=== PATIENT | female | born 1975 | race Two or more races ===

== ENCOUNTER 2024-05-24 19:24 | Emergency (ER) | payer MEDICAID, SELFPAY ==
[2024-05-24 19:25] VITALS: BMI 38.9
--- NOTE | 2024-05-24 19:44 | EKG_ITS ---
[facility] (Formerly [facility]) Test Date: 2024-05-24 Pat Name: CESAR LEON Department: Room: - Gender: Female [employer] Supervisor: : 1975 Requested By: Angelina Jones Order Number: [id number] Reading MD: Angelina Jones Measurements Intervals [place] Rate: 81 P: -2 OR: 122 QRS: -21 QRSD: 90 T: 5 QT: 357 QTc: 415 Interpretive Statements SINUS RHYTHM INDETERMINATE AXIS LOW QRS VOLTAGE IN PRECORDIAL LEADS [QRS DEFLECTION < 1.0 mV IN CHEST LEADS] POSSIBLE ANTERIOR MYOCARDIAL INFARCTION , PROBABLY OLD [30 ms Q WAVE IN V3/V4, OR R < 0.2 mV IN V4] No previous ECG available for comparison /store/S0/[id number]
--- NOTE | 2024-05-24 19:44 | XR_ITS ---
Examination: AP chest single view Clinical data productive chest single view EXAMINATION: May 24, 2024 1958 hours INDICATIONS: Shortness of breath today. FINDINGS: Normal heart size No lobar pneumonia or pulmonary edema Duct osseous structures IMPRESSION: No pneumonia or pulmonary edema
--- NOTE | 2024-05-24 19:46 | EDNOTE_ITS ---
Upper Respiratory Inf. RME/HPI General Chief Complaint: Flu Like Symptoms Stated Complaint: COUGH Time Seen by Provider: 05/24/24 19:40 Arrival date/time: 05/24/24 19:24 RME / HPI RME / HPI Narrative: 48-year-old female patient with significant history of asthma, came in for evaluation regarding flulike symptoms. Patient is having worsening flulike symptoms for the last 4 to 5 days, seen by PCP, and was tested negative for influenza. Today patient noticed worsening shortness of breath, and wheezing. Uses her albuterol inhaler with no relief. Patient denies any fever denies any other complaints no medications taken prior to arrival. Related Data Previous Rx's ?Medication ?Instructions ?Recorded cephalexin 500 mg capsule 500 mg PO QID #20 caps 12/16 cephalexin 500 mg capsule 500 mg PO Q8H #20 caps 05/11 ipratropium 0.5 mg-albuterol 3 mg 3 ml inhalation Q8H PRN shortness 05/24/24 (2.5 mg base)/3 mL nebulization of breath #180 mL soln prednisone 50 mg tablet 50 mg PO QDAY #7 tabs Allergies Allergy/AdvReac Type Severity Reaction Status Date / Time No Known Allergies Allergy Verified 12/15/21 19:07 Review of Systems Review of Systems Narrative Review of Systems: Review of system reviewed and within normal limits except mentioned in HPI ED Exam Narrative Physical exam: VITAL SIGNS: Reviewed. GENERAL APPEARANCE: Alert and interactive, follows commands, no acute distress, HEAD AND FACE: Non-traumatic. ENT: PERRL, pink conjunctivitis, eyelid no trauma, Mucous membrane moist. NECK: Supple, nontender, no nuchal rigidity. CHEST: No tenderness, no crepitus, no paradoxical movement, no retractions. LUNGS: Symmetric, no rales, +wheezing, no ronchi, no stridor, decreased breath sounds bilaterally. HEART: Regular rate, regular rhythm, no murmur, no gallops. ABDOMEN: Soft, positive bowel sounds, nondistended, no guarding, nontender, no rebound, no masses, RECTAL: Deferred. GENITAL: Deferred. NEUROLOGICAL: Gross motor function intact sensory function intact, Appropriate for age. MUSCULOSKELETAL: low back nontender, full range of motion. EXTREMITIES: Nontender, full range of motion. SKIN: Color pink, dry, no rash, no lacerations, no abrasions, no contusions. LYMPHATICS: Deferred. Course Quality Measures none Orders Category Date Time Status Bedside COVID-19 Antigen Test NOW Care 05/24/24 19:45 Active Bedside Influenza A&B Antigen Test NOW Care 05/24/24 19:45 Completed EKG (ED ONLY) *Do not use* NOW Care 05/24/24 19:44 Completed EKG (ED Only) Stat Exams 05/24/24 19:44 Draft XR chest 1V Stat Exams 05/24/24 19:44 Completed B-Type Natriuretic Peptide Stat Lab 05/24/24 19:58 Completed CBC Stat Lab 05/24/24 19:58 Completed Comprehensive Metabolic Panel Stat Lab 05/24/24 19:58 Completed Partial Thromboplastin Time Stat Lab 05/24/24 19:58 Completed RSV [Respiratory Syncytial Virus Ag] Stat Lab 05/24/24 20:00 Received Troponin I Stat Lab 05/24/24 19:58 Completed Urinalysis, C/S if Indicated Stat Lab 05/24/24 20:08 Completed ALBUTEROL RT 0.5ml [Proventil Rt 0.5ml] Med 05/24/24 19:44 Discontinued 2.5 mg INH X1 ONE Albuterol/Ipratr Rt Cristal [Duoneb Rt Cristal] Med 05/24/24 19:44 Discontinued 3 ml INH X1 ONE Dexamethasone Inj [Decadron Inj] Med 05/24/24 19:44 Discontinued 10 mg PO X1 ONE Sodium Chloride Rt Cristal 0.9% [NS Rt Cristal 0.9%] Med 05/24/24 19:44 Active 3 ml INH PRN PRN Vital Signs Vital signs: Vital Signs Temperature 98.4 F 05/24/24 19:48 Pulse Rate 83 05/24/24 19:48 Respiratory Rate 22 H 05/24/24 19:48 Blood Pressure 119/73 05/24/24 19:48 Pulse Oximetry (%) 94 L 05/24/24 19:48 Oxygen Delivery Method Room Air 05/24/24 19:48 Upper Respiratory Infection MDM Narrative MDM Narrative:: 48-year-old female patient with significant history of asthma, came in for evaluation regarding flulike symptoms. Patient is having worsening flulike symptoms for the last 4 to 5 days, seen by PCP, and was tested negative for influenza. Today patient noticed worsening shortness of breath, and wheezing. Uses her albuterol inhaler with no relief. Patient denies any fever denies any other complaints no medications taken prior to arrival. Chest x-ray came back unremarkable. Laboratory workup also came back normal negative for influenza and COVID-19. EKG showed normal sinus rhythm, ventricular rate of 81 bpm, no ST segment elevation depression noted. Results discussed with the patient and family. Patient received Decadron p.o. and DuoNeb breathing treatment combined with albuterol breathing treatment with complete resolution of symptoms. Prior to discharge patient was noted to be satting 99% on room air Patient appears nontoxic and hemodynamically stable. Patient discharged home and instructed to follow-up with primary care provider in 24 to 48 hours. Instructed to return to the emergency department immediately if worsening of symptoms Patient data External records reviewed:: None Clinical information provided by:: none Social determinants that could affect healthcare access:: none Patient has the following chronic illnesses:: Diabetes mellitus, asthma, hypertension How is presenting disease/condition affected by chronic disease/condition?: exacerbated by Evaluation data The following diagnostics were reviewed and interpreted by me:: lab results, radiology exam(s) and EKG tracing(s) Lab and/or radiology exams considered but not ordered:: None Interpretation Summary: See results in [facility] Medications / Prescriptions Medications or Prescriptions considered but not ordered:: None Medication administrations:: Medication Administration History Sodium Chloride (Sodium Chloride Rt Cristal 0.9% 3 Ml Nebu) 3 ml INH PRN PRN PRN Reason: SOLN Stop: 06/23/24 19:43 Discontinued Medications Albuterol (Albuterol Rt 2.5 Mg/0.5 Ml Nebu) 2.5 mg INH X1 ONE Stop: 05/24/24 19:45 Last Admin: 05/24/24 20:04 Dose: 2.5 mg Documented By: GB Albuterol/Ipratropium (Albuterol/Ipratropium (Duoneb) Rt Cristal 3 Ml Nebu) 3 ml INH X1 ONE Stop: 05/24/24 19:45 Last Admin: 05/24/24 20:04 Dose: 3 ml Documented By: NEIDA Dexamethasone Sodium Phosphate (Dexamethasone Sod Phos Inj 10 Mg/Ml Vial) 10 mg PO X1 ONE Stop: 05/24/24 19:45 Last Admin: 05/24/24 20:07 Dose: 10 mg Documented By: PILLO Decadron, albuterol, DuoNeb, Consultations Consultation(s) initiated? (list below): No Diagnosis Upper Respiratory Differential Diagnosis: upper respiratory infection, viral infection, influenza and other ( asthma attack) Most likely diagnosis given after review of the tests above:: Asthma attack Admission Indicated Admission indicated?: not indicated Explain why admission is indicated or not indicated:: Stable Admission Request Was there a request for admission?: No Disposition Plan Disposition Plan: Discharge Discharge Attestation Discharge Attestation: The patient and all family members were given an opportunity to ask questions and understood the discharge instructions. Discharge instructions specifically effects, indications for sooner follow up or return to the emergency department, and the expected course of current diagnosis. Patient condition: Stable Discharge Plan Plan Patient Disposition: HOME (Self Care) Disposition Comment: stable Prescriptions/Referrals Prescriptions/Med Rec: New prednisone 50 mg tablet 50 mg PO QDAY Qty: 7 0RF ipratropium-albuterol 0.5 mg-3 mg(2.5 mg base)/3 mL solution for nebulization 3 ml inhalation Q8H PRN (Reason: shortness of breath) Qty: 180 0RF No Action cephalexin 500 mg capsule 500 mg PO QID Qty: 20 0RF cephalexin 500 mg capsule 500 mg PO Q8H Qty: 20 0RF Problem List Clinical Impression: Asthma attack Patient/Caregiver Discharge Instructions Discharge Activity: activity as tolerated Education Materials: Asthma Additional Instructions: Thank you for the opportunity for serving you today. You are stable for discharged . You are advised to: Follow-up with your PCP in 1 to 2 days Return to ED for worsening of symptoms Increase oral fluids Take medication as prescribed Print Language: Chinese Stand Alone Forms: [employer] Award Info., Patient Portal Info Letter PA/JOSEFINA Supervising Physician JUANA/JOSEFINA Supervising Physician: MD Félix
[2024-05-24 19:48] VITALS: BP 119/73; PULSE 83; RESP 22; TEMP 36.9; O2SAT 94
[2024-05-24 20:04] VITALS: PULSE 88
[2024-05-24] MEDS: ALBUTEROL RT 2.5 MG/0.5 ML NEBU INH (20:04)
[2024-05-24] MEDS: ALBUTEROL/IPRATROPIUM (Duoneb) RT SOL 3 ML NEBU INH (20:04)
[2024-05-24] MEDS: DEXAMETHASONE SOD PHOS INJ 10 MG/ML VIAL PO (20:07)
[2024-05-24 20:09] VITALS: PULSE 78; RESP 20; O2SAT 99
[2024-05-24 20:11] LABS: Basophils # (Auto) 0.1 Thou/mm3 (0.0-0.2); Basophils % (Auto) 1 % (0-2.5); Eosinophils # (Auto) 0.2 Thou/mm3 (0.0-0.5); Eosinophils % (Auto) 4 % (0-10); Hematocrit 36.3 % (36.0-46.0); Hemoglobin 11.3 g/dL (12.0-16.0); Immature Granulocytes % (Auto) 0 % (0-0); Immature Granulocytes Auto 0.01 Thou/mm3 (0.00-0.00); Lymphocytes # (Auto) 1.4 Thou/mm3 (1.0-4.8); Lymphocytes % (Auto) 26 % (10-50); Mean Corpuscular HGB Conc 31.1 g/dl (31.0-37.0); Mean Corpuscular Hemoglobin 24.2 pg (25.0-35.0); Mean Corpuscular Volume 78 fL (80-100); Monocytes # (Auto) 0.8 Thou/mm3 (0.0-0.8); Monocytes % (Auto) 14 % (0-12); Neutrophils # (Auto) 3.1 Thou/mm3 (1.8-7.7); Neutrophils % (Auto) 55 % (37-80); Nucleated Red Blood Cell % 0 /100 WBC (0); Platelet Count 172 Thou/mm3 (140-440); RDW Standard Deviation 39.4 fL (36.4-46.3); Red Blood Count 4.67 Miln/mm3 (4.00-5.20); White Blood Count 5.6 Thou/mm3 (3.6-11.0)
[2024-05-24 20:27] LABS: Collection Type, Urine Clean Catch
[2024-05-24 20:34] LABS: Partial Thromboplastin Time 29.1 Seconds (22.0-36.0)
[2024-05-24 20:41] LABS: B-Type Natriuretic Peptide 27 pg/mL (0-100)
[2024-05-24 20:42] LABS: Alanine Aminotransferase 8 U/L (10-49); Albumin, Serum 4.1 gm/dL (3.5-5.0); Albumin/Globulin Ratio 1.4 (1.2-2.2); Alkaline Phosphatase 89 U/L (46-116); Anion Gap 7 (7-16); Aspartate Amino Transferase 17 U/L (0-34); BUN/Creatinine Ratio 14 Ratio (12-20); Bilirubin,Total 0.4 mg/dL (0.3-1.2); Blood Urea Nitrogen 14 mg/dL (9-23); Calcium 8.7 mg/dL (8.3-10.6); Calcium (Corrected) 8.7 mg/dL (8.5-10.1); Carbon Dioxide 26.5 mMol/L (20.0-31.0); Chloride 103 mMol/L (98-107); Estimated Creatinine Clearance 72.5 mL/min (>60); Glucose 330 mg/dL (74-106); Osmolality,Calculated 285 (275-295); Potassium 5.1 mMol/L (3.4-5.1); Sodium 136 mMol/L (136-145); Total Protein 7.1 gm/dL (5.7-8.2); Troponin I < 0.002 ng/mL (0.0-0.045); eGFR > 60 See Note
[2024-05-24 21:00] LABS: Bilirubin,Urine Negative (Negative); Blood,Urine Trace (Negative); Clarity,Urine Clear (Clear/Hazy); Color,Urine Colorless (Lt Yel-Yel); Culture Indicated,Urine Not Indicated; Glucose, Urine 4+ (Negative); Ketones,Urine Negative (Negative); Leukocyte Esterase,Urine Negative (Negative); Nitrite,Urine Negative (Negative); Protein,Urine Negative (Neg - Trace); RBC,Urine 5 /hpf (0-3); Specific Gravity,Urine 1.034 (1.001-1.035); Squamous Epithelial Cell,Urine 3 /hpf (0-5); Urobilinogen,Urine Negative mg/dL (0.0-1.0); WBC,Urine 3 /hpf (0-5)
[2024-05-24 21:50] LABS: Respiratory Syncytial Virus Ag Negative (Negative)
== END 2024-05-24 21:51 | disposition home or self-care (01) ==
LOC: SERX 22:12
PROVIDERS: Nurse Practitioner Family; Emergency Provider Emergency Medicine; PCP Physician Assistant
DX: J45.909 Unspecified asthma, uncomplicated (principal); R94.31 Abnormal electrocardiogram [ECG] [EKG]; I10 Essential (primary) hypertension
CPT/HCPCS: 36415; 71045; 80053; 81001; 83880; 84484; 85025; 85730; 87400; 87634; 87811; 93005; 94640; 99283; A9270; J1100

== ENCOUNTER 2024-11-08 21:24 | Emergency (ER) | payer MEDICAID, SELFPAY ==
[2024-11-08 21:29] VITALS: BP 126/77; PULSE 76; RESP 18; TEMP 37.2; O2SAT 96; BMI 36.6
--- NOTE | 2024-11-08 21:37 | EKG_ITS ---
[facility] Test Date: 2024-11-08 Pat Name: Marina Siddiqi Department: Room: - Gender: Female [employer] Disposal Worker: : 1975 Requested By: ED Temporary Provider Order Number: [id number] Reading MD: ED Temporary Provider Measurements Intervals [place] Rate: 75 P: 10 [place]: 132 QRS: -9 QRSD: 88 T: 4 QT: 361 QTc: 405 Interpretive Statements SINUS RHYTHM INDETERMINATE AXIS LOW QRS VOLTAGE IN PRECORDIAL LEADS [QRS DEFLECTION < 1.0 mV IN CHEST LEADS] ANTERIOR MYOCARDIAL INFARCTION , PROBABLY OLD [40+ ms Q WAVE AND/OR ST/T ABNORMALITY IN V3/V4] Compared to ECG 05/24/2024 19:52:49 No significant changes /store/S0/[id number]
--- NOTE | 2024-11-08 22:12 | PD.EDSOB ---
ED SOB =RME/HPI General Chief Complaint: Shortness of Breath/Dyspnea Stated Complaint: SOB EDEMA TO L LOWER LEG Time Seen by Provider: 11/08/24 22:18 Arrival date/time: 11/08/24 21:24 RME / HPI RME / HPI Narrative: This section includes all my notes and documentations, including HPI, PE, and ED course. Mahesh Rosario MD HPI: 48yo female here with several days of dyspnea and bilateral leg swelling. No fever. No cough. Doesn't feel ill. No other complaints. ROS: All negative except as documented in HPI. Physical Exam: General: Alert and oriented. No acute distress when remaining still. Eyes: Conjunctivae and lids clear. ENT: No nasal congestion. Pharynx normal. Tympanic membrane normal bilaterally. Neck: Supple. Heart: RRR. Lungs: No respiratory distress. Mildly decreased air movement. No significant rhonchi or wheezing or rales. Chest: No tenderness. Abdomen: Soft and nontender. Legs: Moderate pitting edema of the lower legs. Skin: Warm and dry. Neuro: Alert and oriented X 3. I reviewed all diagnostic test results. My interpretation of the EKG is sinus rhythm with nonspecific ST-T changes. My interpretation of the chest x-ray is NAD. My review of the CT chest report is NAD. Blood tests are unremarkable. UA remarkable for 12 WBCs and 1+ bacteria. At this point, diagnoses include mild asthma attack, UTI (urinary tract infection), and dependent leg edema. Treatment here included Duoneb, Rocephin, and Prednisone. Some improvement noted. Recommend outpatient management. Based on my best medical judgment, made decision no further evaluation or treatment indicated at this time. Patient understands and agrees to the discharge instructions customized and printed, see below. Discharge instructions from Dr. Rosario: 1. After extensive evaluation, there is no life-threatening condition. Such as heart attack or pulmonary embolism (blood clots in your lungs) or pneumothorax (collapsed lung). 2. Your shortness of breath is due to asthma. Your leg swelling is due to being on your feet too much. And you have a urinary tract infection. 3. For asthma, take prednisone as prescribed. And 2 puffs of albuterol inhaler every 4-6 hours for 24 hours and as needed. Avoid exposure to smoking and dust and humidity. 4. For your leg swelling, take Lasix 20 mg daily for 5 days. When resting or sitting or sleeping, elevate your feet/ankles above your waist level. This is extremely important to get the extra fluid back into circulation to urinate out the fluid. Decrease salt intake. Wear compression socks when being on your feet for prolonged time. 5. See a private doctor on 11/12/2024 for recheck and further care. Ask to review all test results and official radiology reports, to make sure you receive all necessary follow-ups and monitoring. To make sure there is no serious underlying heart condition, ask to help you get more tests for your heart that cannot be done here in the ER. Such as Holter Monitor (cardiac monitoring at home from a day to even a month), heart stress test (on treadmill or with medication), echocardiogram (imaging of your heart structures), heart catherization (checking for blockages in your heart arteries), and a referral to see a Asbestos Microscopist. 6. Seek immediate medical care with worsening or with any concerns. Mahesh Rosario MD Related Data Previous Rx's ?Medication ?Instructions ?Recorded cephalexin 500 mg capsule 500 mg PO QID #20 caps 12/16/21 cephalexin 500 mg capsule 500 mg PO Q8H #20 caps 05/11/23 ipratropium 0.5 mg-albuterol 3 mg 3 ml inhalation Q8H PRN shortness 05/24/24 (2.5 mg base)/3 mL nebulization of breath #180 mL soln prednisone 50 mg tablet 50 mg PO QDAY #7 tabs 05/24/24 albuterol sulfate 90 mcg/actuation 2 puff inhalation Q6H PRN 11/09/24 aerosol inhaler shortness of breath or wheezing #8.5 grams cefdinir 300 mg capsule 300 mg PO BID #14 caps 11/09/24 furosemide 20 mg tablet (Lasix) 20 mg PO QDAY 5 days #5 tabs 11/09/24 prednisone 50 mg tablet 50 mg PO QDAY #3 tabs 11/09/24 Allergies Allergy/AdvReac Type Severity Reaction Status Date / Time No Known Allergies Allergy Verified 11/08/24 21:35 Review of Systems Review of Systems Systems Reviewed: All systems reviewed, normal except as documented Past Medical History Past Medical History CARDIAC: Positive Hypertension; Negative Cardiac Disorders or Congestive Heart Failure RESPIRATORY: Negative Chronic Obstructive Pulmonary Disease (COPD) or Asthma GENITOURINARY: Negative Renal Disease ENDOCRINE: Positive Diabetes Mellitus Type 2; Negative Diabetes Mellitus Type 1 HEMATOLOGIC: Negative Sickle Cell Disease Social History SMOKING STATUS: Never smoker ED Exam Narrative Physical exam: As noted in HPI. Course Course Course Narrative: CXR is ordered for determining the etiology of shortness of breath. Quality Measures none Orders Category Date Time Status Bedside COVID-19 Antigen Test NOW Care 11/08/24 22:14 Completed Bedside Influenza A&B Antigen Test NOW Care 11/08/24 22:14 Completed EKG (ED ONLY) *Do not use* NOW Care 11/08/24 21:[address] chest wo con Stat Exams 11/08/24 23:29 Completed EKG (ED Only) Stat Exams 11/08/24 21:37 Draft US venous doppler LE BI Stat Exams 11/09/24 00:53 Taken XR chest 1V portable Stat Exams 11/08/24 22:15 Completed BNP [B-Type Natriuretic Peptide] Stat Lab 11/08/24 22:26 Completed Bilirubin,Direct Stat Lab 11/08/24 22:26 Completed CBC Stat Lab 11/08/24 22:26 Completed CMP [Comprehensive Metabolic Panel] Stat Lab 11/08/24 22:26 Completed D-Dimer Stat Lab 11/08/24 22:26 Completed Free T4 (Free Thyroxine) Stat Lab 11/08/24 22:26 Completed Hemoglobin A1C [Glycohemoglobin w (eAG)] Stat Lab 11/08/24 22:26 Completed Magnesium Stat Lab 11/08/24 22:26 Completed PT [Prothrombin Time with INR] Stat Lab 11/08/24 22:26 Completed PTT [Partial Thromboplastin Time] Stat Lab 11/08/24 22:26 Completed TSH [Thyroid Stimulating Hormone] Stat Lab 11/08/24 22:26 Completed Troponin I Stat Lab 11/08/24 22:26 Completed UA, C/S IF [Urinalysis, C/S if Indicated] Stat Lab 11/08/24 22:43 Completed Urine Culture Stat Lab 11/08/24 22:43 Received Albuterol/Ipratr Rt Cristal [Duoneb Rt Cristal] Med 11/08/24 23:30 Discontinued 3 ml INH X1 ONE MethylPREDNISolone.* [SoluMEDROL Inj] Med 11/08/24 23:30 Discontinued 125 mg IVP X1 ONE cefTRIAXone [Rocephin] 1,000 mg Med 11/09/24 00:12 Discontinued Lidocaine 1% 20 ml [Xylocaine 1% 20 ML] 2.1 ml IM X1 cefTRIAXone/D5w 1gm IV premix [Rocephin/D5w 1gm IV Med 11/09/24 00:07 Discontinued premix] 1 g in 50 ml IV X1 predniSONE Med 11/09/24 00:12 Discontinued 40 mg PO X1 ONE Vital Signs Vital signs: Vital Signs Temperature 98.9 F 11/08/24 21:29 Pulse Rate 76 11/08/24 21:29 Respiratory Rate 18 11/08/24 21:29 Blood Pressure 126/77 11/08/24 21:29 Pulse Oximetry (%) 96 11/08/24 21:29 Oxygen Delivery Method Room Air 11/08/24 21:29 Shortness of Breath / Dyspnea MDM Narrative MDM Narrative:: 48yo female here with several days of dyspnea and bilateral leg swelling. No fever. No cough. Doesn't feel ill. No other complaints. Patient data External records reviewed:: [facility] previous records (Per chart review, patient was seen here on 05/24/24 for asthma attack.) Clinical information provided by:: patient Social determinants that could affect healthcare access:: none Patient has the following chronic illnesses:: HTN, DM How is presenting disease/condition affected by chronic disease/condition?: uneffected by Evaluation data The following diagnostics were reviewed and interpreted by me:: lab results, radiology exam(s) and EKG tracing(s) (My interpretation of the EKG is: Sinus rhythm (75 bpm) with nonspecific ST-T changes. Mahesh Rosario MD) Lab and/or radiology exams considered but not ordered:: none Interpretation Summary: I reviewed all diagnostic test results. My interpretation of the EKG is NSR with nonspecific ST-T changes. My interpretation of the chest x-ray is NAD. My review of the CT chest report is NAD. Blood tests are unremarkable. UA remarkable for 12 WBCs and 1+ bacteria. Medications / Prescriptions Medications or Prescriptions considered but not ordered:: none Medication administrations:: Medication Administration History Discontinued Medications Albuterol/Ipratropium (Albuterol/Ipratropium (Duoneb) Rt Cristal 3 Ml Nebu) 3 ml INH X1 ONE Stop: 11/08/24 23:31 Last Admin: 11/09/24 00:37 Dose: 3 ml Documented By: KODI Ceftriaxone Sodium 1,000 mg/ (Lidocaine HCl 2.1 ml) 0 mg IM X1 ONE Stop: 11/09/24 00:13 Last Admin: 11/09/24 00:32 Dose: 1,000 mg Documented By: FIDELIAL Ceftriaxone Sodium/Dextrose (Rocephin/D5w 1gm Iv Premix) 1 g in 50 mls @ 100 mls/hr IV X1 ONE Stop: 11/09/24 00:36 Last Admin: 11/09/24 00:13 Dose: Not Given Documented By: CVL Non-Admin Reason: Cancelled by Provider Methylprednisolone Sodium Succinate (Methylprednisolone Sod Succ 62.5 Mg/Ml 2ml Vial) 125 mg IVP X1 ONE Stop: 11/08/24 23:31 Last Admin: 11/09/24 00:13 Dose: Not Given Documented By: CVL Non-Admin Reason: Cancelled by Provider Prednisone (Prednisone 20 Mg Tablet) 40 mg PO X1 ONE Stop: 11/09/24 00:13 Last Admin: 11/09/24 00:31 Dose: 40 mg Documented By: SEBASTIAN Duasim Rocephin, Prednisone Consultations Consultation(s) initiated? (list below): No Diagnosis Shortness of Breath Differential Diagnosis: acute exacerbation of chronic obstructive airways disease, congestive heart failure, community acquired pneumonia, asthma with exacerbation, pulmonary embolism and other (DVT) Most likely diagnosis given after review of the tests above:: Asthma attack, UTI (urinary tract infection), dependent leg edema Admission Indicated Admission indicated?: not indicated Explain why admission is indicated or not indicated:: With significant improvement and no condition needing emergent intervention, there was no indication for admission. Admission Request Was there a request for admission?: No Disposition Plan Disposition Plan: Discharge Discharge Attestation Discharge Attestation: The patient and all family members were given an opportunity to ask questions and understood the discharge instructions. Discharge instructions specifically effects, indications for sooner follow up or return to the emergency department, and the expected course of current diagnosis. Patient condition: Stable Discharge Plan Plan Patient Disposition: HOME (Self Care) Prescriptions/Referrals Prescriptions/Med Rec: New prednisone 50 mg tablet 50 mg PO QDAY Qty: 3 0RF furosemide [Lasix] 20 mg tablet 20 mg PO QDAY 5 Days Qty: 5 0RF albuterol sulfate 90 mcg/actuation HFA aerosol inhaler 2 puff inhalation Q6H PRN (Reason: shortness of breath or wheezing) Qty: 8.5 0RF cefdinir 300 mg capsule 300 mg PO BID Qty: 14 0RF No Action cephalexin 500 mg capsule 500 mg PO QID Qty: 20 0RF cephalexin 500 mg capsule 500 mg PO Q8H Qty: 20 0RF prednisone 50 mg tablet 50 mg PO QDAY Qty: 7 0RF ipratropium-albuterol 0.5 mg-3 mg(2.5 mg base)/3 mL solution for nebulization 3 ml inhalation Q8H PRN (Reason: shortness of breath) Qty: 180 0RF Referrals: Matthew Baker PA-C [Primary Care Provider] - In 1 week Problem List Clinical Impression: Asthma attack, UTI (urinary tract infection), Leg edema Patient/Caregiver Discharge Instructions Discharge Activity: activity as tolerated Education Materials: ED Asthma, Acute (Adult), ED Leg Swelling in Both Legs, ED CYSTITIS Female Adult Additional Instructions: Discharge instructions from Dr. Rosario: 1. After extensive evaluation, there is no life-threatening condition.? Such as heart attack or pulmonary embolism (blood clots in your lungs) or pneumothorax (collapsed lung). 2. Your shortness of breath is due to asthma. Your leg swelling is due to being on your feet too much. And you have a urinary tract infection. 3. For asthma, take prednisone as prescribed. And 2 puffs of albuterol inhaler every 4-6 hours for 24 hours and as needed. Avoid exposure to smoking and dust and humidity. 4. For your leg swelling, take Lasix 20 mg daily for 5 days. When resting or sitting or sleeping, elevate your feet/ankles above your waist level. This is extremely important to get the extra fluid back into circulation to urinate out the fluid. Decrease salt intake. Wear compression socks when being on your feet for prolonged time. 5. See a private doctor on 11/12/2024 for recheck and further care. Ask to review all test results and official radiology reports, to make sure you receive all necessary follow-ups and monitoring. To make sure there is no serious underlying heart condition, ask to help you get more tests for your heart that cannot be done here in the ER.? Such as Holter Monitor (cardiac monitoring at home from a day to even a month), heart stress test (on treadmill or with medication), echocardiogram (imaging of your heart structures), heart catherization (checking for blockages in your heart arteries), and a referral to see a Asbestos Microscopist. 6. Seek immediate medical care with worsening or with any concerns.?? 1. Tras jh evaluaci?n exhaustiva, no se observa ninguna afecci?n potencialmente mortal, adi un infarto de miocardio, jh embolia pulmonar (co?gulos de pat en los pulmones) o un neumot?rax (colapso pulmonar). 2. La dificultad para respirar se debe al asma. La hinchaz?n de las piernas se debe a estar mucho tiempo de pie. Y tiene jh infecci?n del tracto urinario. 3. Para el asma, tome prednisona seg?n lo prescrito. Y 2 inhalaciones de albuterol cada 4 a 6 horas sade 24 horas y seg?n sea necesario. Evite la exposici?n al humo del tabaco, al polvo y a la humedad. 4. Para la hinchaz?n de piernas, tome Lasix 20 mg al d?a saed 5 d?as. Al descansar, sentarse o dormir, eleve los pies y los tobillos por encima de la cintura. Mehan es fundamental para que el exceso de l?quido vuelva a circular y pueda orinar. Disminuya el consumo de shanda. Use calcetines de compresi?n si permanece de pie sade per?odos prolongados. 5. Consulte con un m?dico particular el 12/11/2024 para jh nueva revisi?n y atenci?n adicional. Solicite la revisi?n de todos los resultados de las pruebas y los informes radiol?gicos oficiales para asegurarse de recibir todos los controles y monitoreo necesarios. Para asegurarse de que no haya jh afecci?n card?mark subyacente grave, solicite ayuda para realizar m?s pruebas card?acas que no se pueden realizar en urgencias. Adi un monitor Holter (monitoreo card?aco en casa desde un d?a hasta un mes), jh prueba de esfuerzo card?aco (en cinta o con medicaci?n), un ecocardiograma (im?genes de las estructuras del coraz?n), un cateterismo card?aco (para detectar obstrucciones en las arterias del coraz?n) y jh derivaci?n a un cardi?logo. 6. Busque atenci?n m?dica inmediata si rossi condici?n empeora o tiene alguna inquietud. Print Language: Korean Stand Alone Forms: [employer] Award Info., Work/School Release, Patient Portal Info Letter
--- NOTE | 2024-11-08 22:15 | XR_ITS ---
Examination: AP chest single view One AP portable upright chest single view Date and time: November 08, 2024 1031 hours INDICATIONS: Shortness of breath chest pain today. FINDINGS: Normal heart size Lungs are clear. The osseous structures are intact IMPRESSION: No active disease
[2024-11-08 22:37] LABS: Basophils # (Auto) 0.1 Thou/mm3 (0.0-0.2); Basophils % (Auto) 1 % (0-2.5); Eosinophils # (Auto) 0.5 Thou/mm3 (0.0-0.5); Eosinophils % (Auto) 5 % (0-10); Hematocrit 34.5 % (36.0-46.0); Hemoglobin 11.8 g/dL (12.0-16.0); Immature Granulocytes Auto 0.02 Thou/mm3 (0.00-0.00); Lymphocytes # (Auto) 2.7 Thou/mm3 (1.0-4.8); Lymphocytes % (Auto) 29 % (10-50); Mean Corpuscular HGB Conc 34.2 g/dl (31.0-37.0); Mean Corpuscular Hemoglobin 28.9 pg (25.0-35.0); Mean Corpuscular Volume 84 fL (80-100); Monocytes # (Auto) 0.7 Thou/mm3 (0.0-0.8); Monocytes % (Auto) 8 % (0-12); Neutrophils # (Auto) 5.2 Thou/mm3 (1.8-7.7); Neutrophils % (Auto) 57 % (37-80); Nucleated Red Blood Cell # 0.00 Thou/mm3 (0.00-0.00); Nucleated Red Blood Cell % 0 /100 WBC (0); Platelet Count 174 Thou/mm3 (140-440); RDW Standard Deviation 41.3 fL (36.4-46.3); Red Blood Count 4.09 Miln/mm3 (4.00-5.20); White Blood Count 9.2 Thou/mm3 (3.6-11.0)
[2024-11-08 22:47] LABS: Collection Type, Urine Clean Catch
[2024-11-08 23:05] LABS: INR 0.9 (0.9-1.3); Partial Thromboplastin Time 26.0 Seconds (22.0-36.0); Prothrombin Time 10.3 Seconds (9.0-12.2)
[2024-11-08 23:09] LABS: B-Type Natriuretic Peptide 126 pg/mL (0-100)
[2024-11-08 23:10] LABS: D-Dimer < 250 ng/mL (<600)
[2024-11-08 23:24] LABS: Glucose Estimated Average 226 mg/dL (80-131); Hemoglobin A1C 9.5 % Hgb (4.8-6.0)
[2024-11-08 23:24] LABS: Bacteria,Urine 1+; Bilirubin,Urine Negative (Negative); Blood,Urine Negative (Negative); Clarity,Urine Clear (Clear/Hazy); Color,Urine Colorless (Lt Yel-Yel); Glucose, Urine 4+ (Negative); Ketones,Urine Negative (Negative); Leukocyte Esterase,Urine Negative (Negative); Nitrite,Urine Negative (Negative); PH,Urine 7.0 (5.0-7.0); Protein,Urine Negative (Neg - Trace); RBC,Urine 3 /hpf (0-3); Specific Gravity,Urine 1.028 (1.001-1.035); Squamous Epithelial Cell,Urine 2 /hpf (0-5); Urobilinogen,Urine Negative mg/dL (0.0-1.0); WBC,Urine 12 /hpf (0-5)
--- NOTE | 2024-11-08 23:29 | XR_ITS ---
Examination: CT chest, without intravenous contrast. Sagittal and coronal 2-D reconstructions. Exam date and time: November 08, 2024 at 11:42 PM INDICATIONS: Shortness of breath lower leg edema today CTDI:vol (mGy) 15.2 DLP: (mGycm) 505 Technique: Multiple 3.0 mm axial sections of the chest to been obtained. Bone and lung density settings are obtained. Sagittal and coronal 2-D reconstructions have been obtained. Low dose protocols were performed. One or more of the following dose reduction techniques were used; automated exposure control, adjustment of the mA and/or KV according to patient size, use of iterative reconstruction technique. Findings: No thoracic aortic aneurysm dilatation Pulmonary artery segments are not enlarged No paratracheal tracheobronchial or bronchopulmonary adenopathy No pneumonia or pulmonary edema or pleural disease The visualized liver splenic lesion No hydronephrosis Aorta normal size No pancreatic mass The osseous structures are intact IMPRESSION: No mediastinal lymphadenopathy No pneumonia, pulmonary edema or pleural disease
[2024-11-09] LABS: Culture Indicated,Urine Yes
[2024-11-09 00:06] LABS: Alanine Aminotransferase 10 U/L (10-49); Albumin, Serum 3.9 gm/dL (3.5-5.0); Albumin/Globulin Ratio 1.6 (1.2-2.2); Alkaline Phosphatase 82 U/L (46-116); Anion Gap 7 (7-16); Aspartate Amino Transferase 16 U/L (0-34); BUN/Creatinine Ratio 15 Ratio (12-20); Bilirubin,Direct < 0.1 mg/dL (0.0-0.3); Bilirubin,Total 0.4 mg/dL (0.3-1.2); Blood Urea Nitrogen 17 mg/dL (9-23); Calcium 9.0 mg/dL (8.3-10.6); Calcium (Corrected) 9.1 mg/dL (8.5-10.1); Carbon Dioxide 25.4 mMol/L (20.0-31.0); Chloride 108 mMol/L (98-107); Creatinine (Component) 1.1 mg/dL (0.6-1.3); Estimated Creatinine Clearance 66.2 mL/min (>60); Free T4 (Free Thyroxine) 1.39 ng/dL (0.89-1.76); Globulin 2.4 gm/dL (2.3-3.5); Glucose 145 mg/dL (74-106); Magnesium 2.0 mg/dL (1.6-2.6); Osmolality,Calculated 283 (275-295); Potassium 4.0 mMol/L (3.4-5.1); Sodium 140 mMol/L (136-145); Thyroid Stimulating Hormone 1.51 uIU/mL (0.55-4.78); Total Protein 6.3 gm/dL (5.7-8.2); Troponin I < 0.020 ng/mL (0.0-0.045); eGFR > 60 See Note
[2024-11-09 00:08] VITALS: BP 141/78; PULSE 71; RESP 19; O2SAT 99
[2024-11-09] MEDS: cefTRIAXone 1,000 MG, LIDOCAINE 1% 20 ML 2.1 ML IM (00:32)
[2024-11-09] MEDS: ALBUTEROL/IPRATROPIUM (Duoneb) RT SOL 3 ML NEBU INH (00:37)
[2024-11-09 00:38] VITALS: PULSE 77; RESP 20; O2SAT 98
--- NOTE | 2024-11-09 00:53 | XR_ITS ---
Examination: Venous duplex lower extremity sonogram, bilateral. Date and time of exam: November 09, 2024 0107 hours INDICATIONS: Difficulty breathing today with elevated d-dimer on laboratory examination Technique: Multiple sonographic images of the deep venous system have been obtained. B-mode/2-D grayscale imaging of vascular structures and Doppler spectral analysis (waveforms) and color performed Both legs are examined. Findings: Deep venous systems do not demonstrate abnormal echogenicity. All visualized deep veins exhibit compressibility. All visualized deep veins exhibit augmentation. Impression: Negative for deep vein thrombosis
[2024-11-09 01:52] VITALS: BP 144/74; RESP 16
--- NOTE | 2024-11-09 02:19 | PRELIM_ITS ---
Bilateral lower extremity venous Doppler ultrasound. November 09, 2024 0107 hours Clinical history: Edema. High D-dimer No prior study available. Findings: Sarabia scale, color flow and spectral Doppler evaluation of the lower extremity deep veins was performed. Right: The common femoral, superficial femoral and popliteal veins are patent and compressible. Normal respiratory variation and augmentation is noted. The calf veins to the extent visualized are patent. The great saphenous vein is patent at the level of the saphenofemoral junction. Left: The common femoral, superficial femoral and popliteal veins are patent and compressible. Normal respiratory variation and augmentation is noted. The calf veins to the extent visualized are patent. The great saphenous vein is patent at the level of the saphenofemoral junction. Impression: No evidence of deep venous thrombosis in both lower extremities. Report Electronically Signed By: Binu Coffey 11/09/2024 2:18:49 AM [EST]
== END 2024-11-09 01:53 | disposition home or self-care (01) ==
PROVIDERS: Emergency Provider Emergency Medicine; PCP Physician Assistant
DX: J45.909 Unspecified asthma, uncomplicated (principal); N39.0 Urinary tract infection, site not specified; R60.0 Localized edema; I10 Essential (primary) hypertension; R94.31 Abnormal electrocardiogram [ECG] [EKG]
CPT/HCPCS: 36415; 71045; 71250; 80053; 81001; 82248; 83036; 83735; 83880; 84439; 84443; 84484; 85025; 85379; 85610; 85730; 87077; 87086; 87186; 87400; 87811; 93005; 93970; 94640; 96372; 99284; A9270; J0696; J3490; J7512